=== PATIENT | female | born 1960 | race Caucasian/White ===

== ENCOUNTER → 2016-04-29 | Outpatient (CLI) | payer BC ==
[2014-02-18 08:39] VITALS: BP 137/71
[~2016-04-29] MED LIST: ATOR20TA PO; DIVA500T4 PO; GEMF600T3 PO; LEVO175T5 PO; NIAC500C6 PO; OLME40TA PO
--- NOTE | 2016-04-29 15:34 | KCIC ---
PROCEDURE MR of the right wrist HISTORY Right wrist pain. Injury 2 months ago. Pain at the ulnar aspect. TECHNIQUE Standard noncontrast images are obtained. COMPARISON None FINDINGS Triangular fibrocartilage demonstrates mild signal heterogeneity compatible with degeneration and some partial tearing but no evidence of a complete through and through rupture. There is mild ulna plus. Mild extensor carpi ulnaris tendinosis with signal within the tendon and mild surrounding fluid. The wrist is in extreme pronation. The other extensor compartments are intact. Flexor tendons are intact. The median nerve is unremarkable. Irregularity of the scapholunate ligament, including the anterior and posterior bands, compatible with degeneration or partial tearing. No evidence of a through and through complete rupture. There is a slight dorsal tilt of the lunate bone. No evidence of lunotriquetral ligament tear. No bone lesion or acute fracture. There is mild fluid within the distal radioulnar joint, radiocarpal joint and midcarpal joint compartments. IMPRESSION 1. Partial tearing of the triangular fibrocartilage. 2. 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 Mild dorsal lunate tilt. 3. Mild extensor carpi ulnaris tendinosis/tenosynovitis. 4. Small joint effusions. Electronically signed by: Kane Guadalupe MD (Apr 29, 2016 15:32:48)
== END | disposition home or self-care (01) ==
LOC: KCIC MRI 14:15
PROVIDERS: ATTEND Family Medicine
DX: M25.531 Pain in right wrist (principal); M25.431 Effusion, right wrist
CPT/HCPCS: 73221

== ENCOUNTER → 2016-04-29 | Outpatient (CLI) | payer BC ==
[2014-02-18 08:39] VITALS: BP 137/71
--- NOTE | 2016-04-29 18:03 | KCIC ---
Bilateral digital screening mammograms with CAD: HISTORY COMPARISON Comparison is made to previous studies dated 12/12/2014 and 08/03/2009. FINDINGS Breast density category B. The skin and nipples show no abnormalities. No abnormal lymph nodes are seen in the axilla. The breast parenchyma shows scattered fibroglandular density. There are no dominant masses, suspicious calcifications or architectural distortions. Benign appearing calcifications are present IMPRESSION No evidence of malignancy. Recommend routine annual mammographic screening. This study was interpreted with the benefit of Computerized Aided Detection (CAD). Mammography is not 100% sensitive in detecting breast cancer. Therefore, a self breast exam and a clinical breast exam are very important. A negative mammogram does not negate a clinically suspicious finding and should not result in a delay in biopsying a clinically suspicious abnormality. BI-RADS category 2. Benign. This patient's information has been entered into a reminder system for the patient to be notified with the results of this examination and a target date for her next mammograms. Electronically signed by: Sofy Cardoso MD (Apr 29, 2016 18:02:32)
== END | disposition home or self-care (01) ==
LOC: KCIC MAMMO 14:11
PROVIDERS: ATTEND Obstetrics & Gynecology
DX: Z12.31 Encounter for screening mammogram for malignant neoplasm of breast (principal)
CPT/HCPCS: G0202; 77067

== ENCOUNTER → 2017-04-28 | Outpatient (CLI) | payer BC | END | disposition home or self-care (01) | LOC: KCIC MAMMO 16:47 | DX: Z12.31 Encounter for screening mammogram for malignant neoplasm of breast (principal) | CPT/HCPCS: 77063; 77067 ==

== ENCOUNTER → 2019-04-02 | Day surgery (SDC) | payer BC ==
[~2019-04-02] MED LIST changes: +AMLO5TAB10 PO; +CA C1TAB58 PO; -GEMF600T3 PO; +GEMF600T8 PO; +IV RINGERS,LACTATED 1000ML 1,000 ML IV SCH; +LIDOCAINE 2% PF 5 ML VIAL. ONE; +METF500T16 PO; +MULT1CAP33 PO; -OLME40TA PO; +OLME40TA12 PO; +OMEP20CA16 PO; +PROPOFOL 40 ML IV ONE
[2019-04-02 09:45] VITALS: BP 129/76
--- NOTE | 2019-04-02 13:15 | HP ---
ADMIT DATE: 04/02/2019 REFERRING PHYSICIAN: JOSH Hermosillo REASON FOR CONSULTATION: History of colonic polyps. HISTORY OF PRESENT ILLNESS: A 59-year-old female with past medical history significant for hypertension, hypothyroidism, diabetes, GERD, history of colonic polyps, seen for surveillance exam. Bowel habits are regular without diarrhea or constipation. There has been no melena and/or hematochezia. Weight has decreased some since her gastric bypass. She is otherwise without additional complaints. PAST MEDICAL HISTORY: History of colonic polyps, GERD, hypertension, hyperlipidemia, diabetes, hypothyroidism. ALLERGIES: None. MEDICATIONS: Include amlodipine, calcium, Depakote, levothyroxine, metformin, multivitamins, Benicar and omeprazole. FAMILY HISTORY: Significant for diabetes with her sibling, heart attack with her father. PAST SURGICAL HISTORY: Status post hysterectomy and tonsillectomy. SOCIAL HISTORY: She is a former smoker, social drinker. FAMILY HISTORY: Noncontributory. REVIEW OF SYSTEMS: Per records. PHYSICAL EXAMINATION: GENERAL: Reveals a well-nourished, well-developed female who is alert, cooperative, in no acute distress. LUNGS: Clear. CARDIOVASCULAR: Reveals an S1, S2 without S3, S4 or appreciable murmur. ABDOMEN: Reveals a soft abdomen, normal bowel sounds, without appreciable hepatosplenomegaly. EXTREMITIES: Reveals no cyanosis, clubbing or edema. IMPRESSION: History of colonic polyps. Surveillance exam is recommended at this time. Risks and benefits of procedure including risk of hemorrhage and perforation requiring operation have been discussed. The patient is willing to proceed. MARINO CAPONE MD DR: WILLIAMS/lanny JOB#: [id number] / [id number] HERMELINDO Truong
--- NOTE | 2019-04-05 15:07 | PATHOLOGY ---
[facility] Accession Number: [id number] . 01 Material submitted: . sigmoid colon - SIGMOID POLYP . 01 Clinical history: . CRCS . 02 Diagnosis: Colon biopsies, sigmoid polyps: - Hyperplastic polyps. . (JPM:maral; 04/05/2019) QMS 04/05/2019 0912 Local . 02 Comment: There are no adenomatous changes or evidence of malignancy. . (JPM:maral; 04/05/2019) . 02 Electronically signed: . Brian Mccarty MD, Pathologist NPI- [id number] . 01 Gross description: . The specimen is received in formalin, labeled "Jessenia Ailyn, sigmoid polyp". Received are six segments of pale kruger soft tissue ranging in size from 0.2 to 0.4 cm in maximum dimensions. The specimen is submitted entirely in cassette A1. ([facility]; 04/02/2019) QAC/QAC 04/02/2019 1500 Local . 02 Pathologist provided ICD-10: K63.5 . 02 CPT . 413827 Specimen Comment: A courtesy copy of this report has been sent to [phone], [phone] Specimen Comment: [id number] Specimen Comment: Report sent to / DR ELIZONDO Performed at: 01 [facility] [address], [place], [place] [id number] MD Demarcus Ayoub MD Phone: [phone] Performed at: 02 [facility] [address] [place], [place] [id number] MD Brian Mccarty MD Phone: [phone]
== END | disposition home or self-care (01) ==
LOC: ENDOS 07:40
PROVIDERS: ATTEND Internal Medicine Gastroenterology
DX: Z12.11 Encounter for screening for malignant neoplasm of colon (principal); K63.5 Polyp of colon; K64.0 First degree hemorrhoids; K63.89 Other specified diseases of intestine; K57.30 Diverticulosis of large intestine without perforation or abscess without bleeding; K21.9 Gastro-esophageal reflux disease without esophagitis; I10 Essential (primary) hypertension; E03.9 Hypothyroidism, unspecified; E78.5 Hyperlipidemia, unspecified; Z79.899 Other long term (current) drug therapy; Z79.84 Long term (current) use of oral hypoglycemic drugs; Z86.010 Personal history of colon polyps; Z82.49 Family history of ischemic heart disease and other diseases of the circulatory system; Z83.3 Family history of diabetes mellitus; Z87.891 Personal history of nicotine dependence; Z98.84 Bariatric surgery status; Z90.710 Acquired absence of both cervix and uterus
CPT/HCPCS: 45380; 88305; J2001; J2704

== ENCOUNTER → 2019-09-10 | Outpatient (CLI) | payer BC ==
[2019-04-02 09:45] VITALS: BP 129/76
[~2019-09-10] MED LIST changes: -IV RINGERS,LACTATED 1000ML 1,000 ML IV SCH; -LIDOCAINE 2% PF 5 ML VIAL. ONE; -PROPOFOL 40 ML IV ONE
--- NOTE | 2019-09-10 17:16 | KCIC ---
Bilateral digital screening mammograms with 3-D tomosynthesis: Reason for examination: Routine screening. Comparison is made to previous studies dated back to 04/29/2016. Bilateral mammograms in CC and oblique projections were obtained with 2-D imaging and 3-D tomosynthesis imaging on a Siemens Inspiration unit and reviewed on the workstation. Interpretation was made with the benefit of CAD. The skin and nipples show no abnormalities. No abnormal axillary lymph nodes are seen. The breast parenchyma shows scattered fatty and fibroglandular density. (Breast density: Category B.) There continues to be some parenchymal asymmetry in the right breast which is stable. There are no new dominant masses, suspicious calcifications or architectural distortion. Benign calcifications are present. Impression: No evidence of malignancy. Recommend routine screening. BI-RAD Category 2: Benign. "Our facility is accredited by the [employer] Mammography Program." This patient's information has been entered into a reminder system for the patient to be notified with the results of her examination and a target date for the next mammogram. Electronically signed by: Adry Cardoso MD (09/10/2019 5:13 PM) [id number]
== END | disposition home or self-care (01) ==
LOC: KCIC MAMMO 15:22
PROVIDERS: ATTEND Physician Assistant Medical
DX: Z12.31 Encounter for screening mammogram for malignant neoplasm of breast (principal)
CPT/HCPCS: 77063; 77067